=== PATIENT | female | born 1970 | race Caucasian/White ===

== ENCOUNTER 2023-05-06 04:18 | Emergency (ER) | payer MEDICAID, SELFPAY ==
--- NOTE | 2023-05-06 04:28 | ED.GENADULT ---
HPI - General Adult General Time Seen by Provider: 04:28 Date Seen: 05/06/23 Chief complaint: Abdominal Pain Stated complaint: R side pain Time Seen by Provider: 05/06/23 04:28 Source: patient, RN notes reviewed and old records reviewed Mode of arrival: ambulatory Limitations: no limitations History of Present Illness HPI narrative: 53-year-old female who presents today with pain on the right side. She initially says ?my whole right side hurts. ? This is been going on for couple of days. She denies nausea, vomiting, diarrhea, urinary symptoms. Pain is worse with movement she has not taken anything for this. No known injury. Patient does note recent upper respiratory infection with cough but that seems to be getting better. She smokes cigarettes, has an inhaler at home but is not using it frequently. Related Data Previous Rx's Medication Instructions Recorded prednisone 20 mg tablet 20 mg PO BID #10 tabs 05/06/23 Allergies Allergy/AdvReac Type Severity Reaction Status Date / Time No Known Drug Allergies Allergy Verified 05/06/23 04:29 [facility] Family History (Updated 05/06/23 @ 04:36 by Mayelin Meza RN) Other Anxiety Depression High blood pressure Exam Narrative: Exam Narrative: General: Well-developed and well-nourished, no acute distress Head: Atraumatic and normocephalic Eyes: Pupils are equal reactive, extraocular motions intact, conjunctiva clear ENT: External nose and ears are normal, posterior pharynx without erythema or exudate Neck: No midline cervical tenderness, full spontaneous range of motion the neck, trachea midline, no adenopathy Heart: Regular rate and rhythm no murmurs or thrills Lungs: Trace expiratory wheezes bilaterally worse on the right Abdomen: Soft, mild right-sided abdominal tenderness both upper and lower, nondistended with active bowel sounds Musculoskeletal: Right lumbar paraspinous tenderness Neurologic: Awake, alert, and oriented x3, no gross focal neurologic deficits, cranial nerves intact as tested Psych: Mood and affect are appropriate Skin: No rashes Const: Vital Signs, click to edit/add: Vital Signs - 24 hr 05/06/23 04:29 Temperature 97.2 F L Pulse Rate [Pulse Oximeter] 85 Respiratory Rate 20 Blood Pressure [Ri ght Upper Arm] 171/104 H Pulse Oximetry 98 Oxygen Delivery Me thod Room Air Course Course ED Course: Patient seen and examined. Patient presents today with right-sided pain which she localizes to the right low back but also has some right-sided abdominal tenderness. Pain with moving, no CVA tenderness. Symptoms seem most consistent with musculoskeletal pain, however she does have some abdominal tenderness which would does suggest possible intra-abdominal process such as acute appendicitis or acute cholecystitis. Labs are ordered along with CT scan of the abdomen pelvis. Toradol ordered for pain. Also noted to have some wheezes on lung exam, DuoNeb ordered. Patient does smoke cigarettes. Reevaluation(s) Time of Reevaluation #1: 05:50 Reevaluation #1: Labs ordered and independently interpreted by me with normal urinalysis, normal CBC, normal basic panel, normal hepatic panel. CT scan abdomen pelvis independently interpreted by me negative for acute findings. Symptoms today are most consistent with musculoskeletal pain, no rash to suggest shingles. Tylenol and ibuprofen for pain, prednisone burst prescribed and stable for discharge. Vital Signs Vital signs: Initial Vital Signs Temperature 97.2 F L 05/06/23 04:29 Temperature Source Temporal Artery Scan 05/06/23 04:29 Pulse Rate 85 05/06/23 04:29 Pulse Rhythm Regular 05/06/23 04:29 Pulse Strength 3+ Normal 05/06/23 04:29 Respiratory Rate 20 05/06/23 04:29 Blood Pressure 171/104 H 05/06/23 04:29 Blood Pressure Mean 126 H 05/06/23 04:29 Pulse Oximetry 98 05/06/23 04:29 Oxygen Delivery Method Room Air 05/06/23 04:29 Vital Signs Temperature 97.2 F L 05/06/23 04:29 Pulse Rate 85 05/06/23 04:29 Respiratory Rate 20 05/06/23 04:29 Blood Pressure 171/104 H 05/06/23 04:29 Pulse Oximetry 98 05/06/23 04:29 Oxygen Delivery Method Room Air 05/06/23 04:29 Temperature 97.2 F L 05/06/23 04:29 Pulse Rate 85 05/06/23 04:29 Respiratory Rate 20 05/06/23 04:29 Blood Pressure 171/104 H 05/06/23 04:29 Pulse Oximetry 98 05/06/23 04:29 Oxygen Delivery Method Room Air 05/06/23 04:29 Medications Administered Medications: Discontinued Medications Generic Name Dose Route Start Last Admin Trade Name Malik PRN Reason Stop Dose Admin Albuterol/Ipratropium 1 neb 05/06/23 04:35 05/06/23 05:05 Iprat-Albut 0.5-2.5 Mg/3 Ml Neb IH 05/06/23 04:36 1 neb ONCE ONE Administration Ketorolac Tromethamine 15 mg 05/06/23 04:35 05/06/23 05:05 Ketorolac 15 Mg/Ml Inj IVP 05/06/23 04:36 15 mg ONCE ONE Administration Medical Decision Making Lab Data Labs: Lab Results 05/06/23 05/06/23 Range/Units 04:26 04:35 WBC 8.76 (4.50-11.00) K/uL RBC 4.99 (4.00-5.20) m/uL Hgb 13.6 (12.0-16.0) gm/dL Hct 42.1 (33.0-51.0) % MCV 84 (80-100) fL MCH 27 (26-34) pg MCHC 32 (32-36) gm/dL RDW Coeff of Rafael 13.9 (11.5-15.5) % Plt Count 273 (140-440) K/uL Neut % (Auto) 64.2 (42.0-72.0) % Lymph % (Auto) 25.2 (20-44) % [place] % (Auto) 5.9 (0.0-11.0) % Eos % (Auto) 4.2 (0.0-7.0) % Baso % (Auto) 0.3 (0.0-3.0) % Neut # (Auto) 5.61 (1.7-7.0) K/uL Lymph # (Auto) 2.21 (0.90-2.90) K/uL [place] # (Auto) 0.50 (0.00-0.90) K/UL Eos # (Auto) 0.37 (0.00-0.50) K/uL Baso # (Auto) 0.03 (0.00-0.30) K/uL Abs Immat Gran (auto) 0.02 (0.00-0.30) K/uL Imm/Tot Granulo (auto) 0.2 % Sodium 141 (135-149) mmol/L Potassium 3.2 L (3.6-5.1) mmol/L Chloride 107 (96-114) mmol/L Carbon Dioxide 29 (20-32) mmol/L Anion Gap 5 L (7-15) mEq/L BUN 12 (7-30) mg/dL Creatinine 0.6 (0.5-1.5) mg/dL Estimated GFR 107 ml/min Glucose 111 (60-115) mg/dL Calcium 9.5 (8.4-10.6) mg/dL Total Bilirubin 0.4 (0.1-1.5) mg/dL Direct Bilirubin 0.3 (0.0-0.5) mg/dL AST 22 (12-35) U/L ALT 15 (4-35) U/L Alkaline Phosphatase 85 (40-150) U/L Total Protein 7.8 (6.0-8.3) g/dL Albumin 4.3 (3.3-5.0) g/dL Lipase 52 (23-300) U/L Urine Color Yellow (Yellow) Urine Appearance Clear (Clear) Urine pH 7.0 (5.0-8.5) Ur Specific [place] 1.015 (1.000-1.030) Urine Protein Negative (Negative) Urine Glucose (UA) Negative (Negative) Urine Ketones Negative (Negative) Urine Blood Negative (Negative) Urine Nitrite Negative (Negative) Urine Bilirubin Negative (Negative) Urine Urobilinogen 0.2 (0.2-1.0) Ur Leukocyte Esterase Negative (Negative) Urine RBC 0-2 (0-2) Urine WBC 0-2 (0-5) Ur Squamous Epith Cells Few (None-Few) Urine Bacteria None (None) Discharge Plan Discharge Clinical Impression: Acute right-sided low back pain Patient Disposition: Home, Self-Care Condition: Stable Instructions: Acute Low Back Pain (ED) Additional Instructions: Take Tylenol and ibuprofen as needed for pain. Take prednisone as prescribed. Activity Level: No Restrictions and Activity as Tolerated Discharge Diet: Regular Prescriptions: New prednisone 20 mg tablet 20 mg PO BID Qty: 10 0RF Follow Up/Referrals: Brandie Serrano MD [Staff Physician] - Stand Alone Forms: [employer] Info Instructions
[2023-05-06 04:29] VITALS: BP 171/104; PULSE 85; RESP 20; TEMP 36.2; O2SAT 98
[2023-05-06 04:32] LABS: Appearance Urine Clear (Clear); Bilirubin Urine Negative (Negative); Blood Urine Negative (Negative); Color Urine Yellow (Yellow); Glucose Urine Negative (Negative); Ketones Urine Negative (Negative); Leukocyte Esterase Urine Negative (Negative); Nitrite Urine Negative (Negative); Protein Urine Negative (Negative); Specific Gravity Urine 1.015 (1.000-1.030); Urobilinogen Urine 0.2 (0.2-1.0)
--- NOTE | 2023-05-06 04:35 | CT_ITS ---
Patient: BEVERLY BAUTISTA Facility:?[facility] Patient ID:?[id number] Site Patient ID:?[id number]. Site :?[id number] Study:?CT-Abdomen/Pelvis with 95cc [id number]/29/2024 5:48:17 AM Ordering Physician:Debbie Brown Final Report: INDICATION: Right-sided flank and abdominal pain COMPARISON: 01/19/2010 TECHNIQUE: CT of the abdomen and pelvis with intravenous contrast. Multiplanar reformats are included. Contrast: 95 mL Isovue 370 FINDINGS: Lung bases: Right middle lobe and lingular atelectasis. Liver: Mild diffuse hepatic steatosis. Hepatomegaly with the liver length of 23 centimeters. Gallbladder and bile ducts: Cholecystectomy. Mild left lobe intrahepatic biliary ductal dilatation without any extrahepatic duct dilatation. Appears consistent with reservoir effect. Pancreas: Normal. Spleen: Normal. Adrenal glands: There are 2 left adrenal nodules. The anterior nodule measures 1.8 centimeters it has indeterminate Hounsfield units. The posteromedial nodule measures 1.2 centimeters it has indeterminate soft tissue Hounsfield units. This was previously present but much smaller. No right adrenal nodules. Kidneys: Normal parenchyma. No cyst or solid mass. No calculi. No urinary tract dilation. Urinary bladder: Nearly empty at the time of the scan. Vessels: Normal. Pelvis: Hysterectomy. Both ovaries are small. No cyst or mass. Bowel: No dilated or inflamed bowel. Minimal colonic diverticulosis without diverticulitis. Mild stool burden. The appendix is normal. Lymph nodes: No adenopathy. Peritoneum: No ascites. Bones: No fractures. No focal worrisome bone lesions. Degenerative change in the lumbar spine. Abdominal wall: No hernia. IMPRESSION: 1. Mild hepatic steatosis with hepatomegaly. 2. There are 2 left adrenal nodules. Recommend adrenal mass protocol CT abdomen without and with IV contrast in 12 months. Please note that all CT scans at this facility use dose modulation, iterative reconstruction, and/or weight-based dosing when appropriate to reduce radiation dose to as low as reasonably achievable. Dictated by Kerry Feldman MD @ 05/06/2023 6:22:41 AM Signed by:?Kerry Feldman MD @05/06/2023 6:22:41 AM (Electronic Signature)
[2023-05-06 04:51] LABS: RBC Urine 0-2 (0-2); Squamous Epithelial Cell Urine Few (None-Few); WBC Urine 0-2 (0-5)
[2023-05-06] MEDS: KETOROLAC 15 MG/ML inj IVP (05:05)
[2023-05-06] MEDS: IPRAT-ALBUT 0.5-2.5 MG/3 ML NEB 1 NEB IH (05:05)
[2023-05-06 05:11] LABS: Basophils Absolute Auto 0.03 K/uL (0.00-0.30); Basophils Percent Auto 0.3 % (0.0-3.0); Eosinophils Absolute Auto 0.37 K/uL (0.00-0.50); Eosinophils Percent Auto 4.2 % (0.0-7.0); Hematocrit 42.1 % (33.0-51.0); Hemoglobin* 13.6 gm/dL (12.0-16.0); Immature Granulocytes Abs Auto 0.02 K/uL (0.00-0.30); Immature Granulocytes Pct Auto 0.2 %; Lymphocytes Absolute Auto 2.21 K/uL (0.90-2.90); Lymphocytes Percent Auto 25.2 % (20-44); Mean Corpuscular HGB Conc 32 gm/dL (32-36); Mean Corpuscular Hemoglobin 27 pg (26-34); Mean Corpuscular Volume 84 fL (80-100); Monocytes Percent Auto 5.9 % (0.0-11.0); Neutrophils Absolute Auto 5.61 K/uL (1.7-7.0); Neutrophils Percent Auto 64.2 % (42.0-72.0); Platelet Count* 273 K/uL (140-440); RDW Coefficient of Variation % 13.9 % (11.5-15.5); Red Blood Count 4.99 m/uL (4.00-5.20); White Blood Count* 8.76 K/uL (4.50-11.00)
[2023-05-06 05:35] LABS: Slide Review Reflex No
[2023-05-06 05:40] LABS: Albumin* 4.3 g/dL (3.3-5.0)
[2023-05-06 05:41] LABS: Chloride* 107 mmol/L (96-114); Potassium* 3.2 mmol/L (3.6-5.1); Sodium* 141 mmol/L (135-149)
[2023-05-06 05:43] LABS: Anion Gap 5 mEq/L (7-15); Bilirubin Direct* 0.3 mg/dL (0.0-0.5); Bilirubin Total* 0.4 mg/dL (0.1-1.5); Carbon Dioxide* 29 mmol/L (20-32); Creatinine* 0.6 mg/dL (0.5-1.5); Estimated Glomerular Filt Rate 107 ml/min
[2023-05-06 05:44] LABS: Alanine Aminotransferase* 15 U/L (4-35); Alkaline Phosphatase* 85 U/L (40-150); Aspartate Amino Transferase* 22 U/L (12-35); Blood Urea Nitrogen* 12 mg/dL (7-30); Calcium* 9.5 mg/dL (8.4-10.6); Glucose* 111 mg/dL (60-115); Lipase* 52 U/L (23-300); Total Protein* 7.8 g/dL (6.0-8.3)
== END 2023-05-06 07:00 | disposition home or self-care (01) ==
LOC: ED 06:11
PROVIDERS: Emergency Provider Family Medicine
DX: M54.50 Low back pain, unspecified (principal)
CPT/HCPCS: 36415; 74177; 80048; 80076; 81001; 83690; 85025; 94640; 96374; 99283; 99284; J1885; Q9967